=== PATIENT | male | born 1955 | race Caucasian/White ===

== ENCOUNTER 2016-07-03 06:43 | Day surgery (SDC) | payer OTHER ==
[~2016-07-03 06:43] MED LIST: APIX5 PO; CARV3.125 PO; CENTTAB9 PO; DIGO.25 PO; FURO20 PO; KCL10C PO; LISI5 PO; OMEP20TA OR
[2016-07-03] MEDS ORDERED: LORazepam 1 MG TAB SL SCH (07:30)
[2016-07-03] MEDS ORDERED: MIDAZOLAM HCL 2 MG/2 ML VIAL ONE (07:57)
[2016-07-03] MEDS ORDERED: HEPARIN-D5W INJ 250 ML ONE (07:57)
[2016-07-03] MEDS ORDERED: ISOPROTERENOL HCL 1 MG/5 ML AMP ONE (07:57)
[2016-07-03] MEDS ORDERED: fentaNYL CITRATE 250 MCG/5 ML AMP ONE (07:58)
[2016-07-03] MEDS ORDERED: HEPARIN SODIUM - IV 10,000 UNITS/10 ML VIAL ONE (07:58)
[2016-07-03] MEDS ORDERED: METOPROLOL TARTRATE 25 MG TAB PO PRN (08:00)
[2016-07-03] MEDS ORDERED: INSULIN HUMAN REGULAR 1,000 UNITS/10 ML VIAL SQ PRN (08:00)
[2016-07-03] MEDS ORDERED: SODIUM CHLORID 0.9% 500 ML IV SCH (08:00)
[2016-07-03] MEDS ORDERED: LACTATED RINGER'S 1000 ML IV SCH (08:00)
[2016-07-03] MEDS ORDERED: SODIUM CHLORID 0.9% 500 ML INJ 500 ML IV SCH (08:00)
--- NOTE | 2016-07-03 10:03 | EKG ---
Date Performed: 07/03/2016 Time Performed: 07:31:42 PTAGE: 60 years EKG: BASELINE ARTIFACT PRESENT. Atrial fibrillation with slow ventricular response Possible ante rior infarct - age undetermined Inferior/lateral T wave changes are nonspecific Abnormal ECG Within t he constraints of artifact, probably no significant change. PREVIOUS TRACING : 04/03/2016 17.37 DOCTOR: Henry Clemente Interpretating Date/Time 07/03/2016 10:01:51
== END 2016-07-03 08:00 | disposition home or self-care (01) ==
LOC: HDOC 06:43 → HDIC 06:44 → HDOC 08:00
PROVIDERS: ATTEND Internal Medicine Interventional Cardiology
DX: I48.2 Chronic atrial fibrillation (principal); I10 Essential (primary) hypertension; Z53.9 Procedure and treatment not carried out, unspecified reason
CPT/HCPCS: 93005; G0463; 93312; 93320; 93325; 99211; J1644; J2250; J3010

== ENCOUNTER 2016-07-07 14:07 | Day surgery (SDC) | payer OTHER ==
[~2016-07-07] VITALS: Ht 180.3 cm; Wt 90.2 kg
[2016-07-07] MEDS ORDERED: LACTATED RINGER'S 1000 ML IV SCH (15:00)
[2016-07-07] MEDS ORDERED: SODIUM CHLORID 0.9% 500 ML IV SCH (15:00)
[2016-07-07 15:08] VITALS: BP 149/104; PULSE 81; RESP 18; TEMP 98.3; O2SAT 98
[2016-07-07] MEDS ORDERED: METOPROLOL TARTRATE 25 MG TAB PO PRN (15:15)
[2016-07-07] MEDS ORDERED: INSULIN HUMAN REGULAR 1,000 UNITS/10 ML VIAL SQ PRN (15:15)
[2016-07-07] MEDS ORDERED: CARV12.5 PO (15:19)
[2016-07-07] MEDS ORDERED: MULT-135 PO (15:19)
[2016-07-07] MEDS ORDERED: FURO1TAB62 PO (15:19)
[2016-07-07] MEDS ORDERED: LISI-519 PO (15:19)
[2016-07-07] MEDS ORDERED: DIGO0.25 PO (15:19)
[2016-07-07] MEDS ORDERED: APIX5TAB PO (15:19)
[2016-07-07] MEDS ORDERED: K-TA10TA PO (15:19)
[2016-07-07 15:26] LABS: AUTOMATED NEUTROPHIL # 5.3 TH/MM3 (1.8-7.7); BASOPHIL % 0.2 % (0.0-2.0); EOSINOPHIL # 0.1 TH/MM3 (0-0.4); EOSINOPHIL % 1.6 % (0.0-4.0); HEMATOCRIT 44.3 % (39.0-51.0); HEMO FLAGS DIFF FINAL; LYMPH % 16.8 % (9.0-44.0); LYMPHOCYTE # 1.2 TH/MM3 (1.0-4.8); MEAN CELL VOLUME 87.6 FL (80.0-100.0); MEAN CORPUSCULAR HGB CONC 34.2 % (32.0-36.0); MONO % 7.2 % (0.0-8.0); NEUT % 74.2 % (16.0-70.0); PLATELET COUNT 216 TH/MM3 (150-450); RED BLOOD COUNT 5.06 MIL/MM3 (4.50-5.90); RED CELL DISTRIBUTION WIDTH 13.2 % (11.6-17.2); WHITE BLOOD COUNT 7.1 TH/MM3 (4.0-11.0)
[2016-07-07] MEDS ORDERED: PROTAMINE SULFATE 50 MG/5 ML VIAL ONE (15:33)
[2016-07-07] MEDS ORDERED: ISOPROTERENOL HCL 1 MG/5 ML AMP ONE (15:33)
[2016-07-07] MEDS ORDERED: FUROSEMIDE 40 MG/4 ML VIAL ONE (15:33)
[2016-07-07] MEDS ORDERED: HEPARIN SODIUM - IV 10,000 UNITS/10 ML VIAL ONE (15:33)
[2016-07-07] MEDS ORDERED: HEPARIN-D5W INJ 250 ML ONE (15:33)
[2016-07-07] MEDS ORDERED: SODIUM CHLOR 0.9% 250 ML INJ 250 ML ONE (15:33)
[2016-07-07 15:36] LABS: APTT (PATIENT) 27.1 SEC (24.3-30.1); PROTHROMBIN TIME - PATIENT 11.3 SEC (9.8-11.6)
[2016-07-07 15:49] LABS: POTASSIUM 4.2 MEQ/L (3.5-5.1)
[2016-07-07] MEDS ORDERED: HEPARIN-NS/PF INJ 500 ML ONE (15:55)
[2016-07-07] MEDS ORDERED: LEVOFLOXACIN 500 MG PREMIX INJ 100 ML IV ONE (15:56)
[2016-07-07] MEDS ORDERED: SODIUM CHLORID 0.9% 500 ML INJ 500 ML IV ONE (19:00)
[2016-07-07] MEDS ORDERED: ePHEDrine/NS 50 MG/5 ML SYR IV ONE (19:00)
[2016-07-07] MEDS ORDERED: ONDANSETRON HCL 4 MG/2 ML VIAL IV PUSH ONE (19:00)
[2016-07-07] MEDS ORDERED: BACITRACIN OINT 0.9 GM PKT TOP ONE (19:15)
[2016-07-07] MEDS ORDERED: LIDOCAINE HCL 1% 50 ML VIAL INFIL PRN (19:15)
[2016-07-07] MEDS ORDERED: LORazepam 2 MG/ML VIAL IV PRN (19:15)
[2016-07-07] MEDS ORDERED: ATROPINE SULFATE 1 MG/ML VIAL IV PRN (19:15)
[2016-07-07] MEDS ORDERED: SODIUM CHLOR 0.9% 250 ML INJ 250 ML IV PRN (19:15)
[2016-07-07] MEDS ORDERED: oxyCODONE/ACETAMINOPHEN 5 MG/325 MG TAB PO PRN ×2 (19:15)
[2016-07-07] MEDS ORDERED: ONDANSETRON HCL 4 MG/2 ML VIAL IV PRN (19:15)
[2016-07-07] MEDS ORDERED: METOCLOPRAMIDE HCL 10 MG/2 ML VIAL IV PRN (19:15)
[2016-07-07] MEDS ORDERED: MIDAZOLAM HCL 2 MG/2 ML VIAL ONE (19:36)
[2016-07-07] MEDS ORDERED: fentaNYL CITRATE 250 MCG/5 ML AMP ONE (19:36)
[2016-07-07] MEDS ORDERED: DO NOT ADM ANY ANTICOAGULANT DRUGS XX PRN (21:00)
[2016-07-07] MEDS: APIXABAN 5 MG TABLET PO SCH (21:02)
[2016-07-07] MEDS: CARVEDILOL 12.5 MG TAB PO SCH (21:02)
[2016-07-07] MEDS ORDERED: ACETAMINOPHEN 1000 MG/100 ML VIAL IV ONE (22:48)
[2016-07-07] MEDS ORDERED: TETRACAINE 0.5% OPTH SOLN 2 ML BTL LEFT EYE ONE (23:00)
[2016-07-07] MEDS ORDERED: ACETAMINOPHEN 1000 MG/100 ML VIAL IV PRN (23:00)
[2016-07-07] MEDS ORDERED: BALANCED SALT SOLN OPHT IRRIG 15 ML BTL LEFT EYE ONE (23:00)
[2016-07-08] VITALS (8 sets, daily range): BP systolic 140–152; BP diastolic 88–93; PULSE 53–78; RESP 18; TEMP 97.4–98.3; O2SAT 96–98
[2016-07-08 06:10] LABS: APTT (PATIENT) 27.3 SEC (24.3-30.1); INTERNATIONAL NORMALIZED RATIO 1.1 RATIO; PROTHROMBIN TIME - PATIENT 11.8 SEC (9.8-11.6)
[2016-07-08] MEDS: CARVEDILOL 12.5 MG TAB PO SCH (08:12)
[2016-07-08] MEDS: APIXABAN 5 MG TABLET PO SCH (08:12)
--- NOTE | 2016-07-08 08:15 | PD.CARD ---
AFIB ABLATION 2 PROCEDURE DATE: Jul 07, 2016 CARDIOVERSION: Yes Atrial Fibrillation Ablation 2 PROCEDURE Electrophysiology study, CS cannulation, 3-D mapping, right and left heart catheterization, transseptal approach, left atrial pacing, mapping and ablation of atrial fibrillation, pulmonary vein isolation, roof line, posterior wall ablation and mitral valve isolation, left atrial tachycardia ablation, cardioversion as well as intracardiac echo. Very difficult and complex case. HISTORY Mr. Shine is a 60 -year-old male with atrial fibrillation, very symptomatic, heart rate difficult to control was referred for electrophysiology study and atrial fibrillation ablation. The risks, the nature and the benefit of procedure were clearly stated to him . The risks include pneumothorax, cardiac perforation, stroke and even . He understood and agreed to proceed. PROCEDURE As written informed consent was obtained prior to transesophageal echo, the patient was kept on the table where he was intubated and put under general anesthesia by anesthesiologist. Then, he was prepped and draped in the sterile fashion. At that point, using the modified sterile technique, the left femoral vein was cannulated on three occasions and three guide wires were advanced. Over the wires and one 7-Malagasy, one 6-Malagasy and one 10-Malagasy Hemaquet were advanced. Then, the left femoral artery was cannulated on one occasion and one guidewire was advanced. Over the wire 4-Malagasy Hemaquet was advanced. Subsequently the right femoral vein was cannulated on one occasion and one guidewire was advanced. Over the wire an 8-Malagasy Hemaquet was advanced. Then , under fluoroscopic guidance through the 7 and 6-Malagasy Hemaquet, two 5-Malagasy Lisa curved quadripolar electrophysiology catheters were placed and positioned on the coronary sinus and the His. The patient was in atrial fibrillation. Basic interval was measured, HV was within normal limits. Subsequently through the 10-Malagasy Hemaquet, and intracardiac echo catheter was advanced into the right atrium. Multiple views were obtained. There was no pericardial effusion. Pulmonary vein was clearly visualized and there was adequate flow. There was moderate to severely decrease the left ventricular wall contractility. There was severe left atrial enlargement. Smoke seen in left atrial. Foci was clearly visualized. The aortic root as well as the aortic valve was clearly visualized. Then, the 8 Malagasy Hemaquet was exchanged for a transseptal Argilus sheath that was placed all the way to the superior vena cava. Through the dilator, a [place] needle was advanced. Then in the MONGOLIAN 30 with intracardiac echo guiding the sheath was advanced posteriorly on the foci and engaged. Once engaged the needle was advanced. RF was delivered for 2 seconds, I was able to cross the atrial septum without difficulty. At this point the dilator was advanced. The needle was pulled back and subsequently the sheath was advanced. Once we realized the sheath crossed on the intracardiac echo the dilator and the needle was removed. The sheath was subsequently flushed. Fluid movement was seen in the left atrium. That indicated sheath in place. The patient already received [id number] units of heparin. The goal is to keep an ACT around the 350 seconds. Then, an esophageal probe was advanced to measure initiation temperature during ablation. If there is any increase of 0.5 degrees Celsius during ablation we will stop and move to a different part of the left atrium or wait until the temperature comes down and continue with ablation. Through the argilus sheath, a [place] 20 poles mapping catheter was advanced. Using [employer] endocardial solution mapping system a three-dimensional configuration of the left atrium was obtained. I did identify the left superior and inferior vein, the left atrial appendage as well as the mitral valve. Then, the right superior and the right inferior vein. After the 3D mapping of the left atrium was complete, I did remove the circumferential catheter and replaced by a [place] Tacticat, 3.5 mm irrigated tip, 65 cm, mapping and radiofrequency ablation catheter. First I did proceed with isolation of the left superior and inferior vein. Posterior wall was ablated. Lateral wall was ablated. A roof line was created. A mitral line was also created. mitral valve was isoalted. Anterior wa;ll was ablated. Floor line was created. Patient was in atrial tachycardia at that point. Anterior fractionated signals were also eliminated. Then, I did proceeded with isolation of the right superior and inferior vein as well as the [place]. At that point, the ablation catheter was removed. I did advance the circumferential catheter to the left superior vein. The left superior vein at the beginning of the procedure was very active and there was no significant signal seen there. All veins were isolated. I decided to proceed with cardioversion. A 200 J sync biphasic was delivered that converted patient into sinus rhythm. I did pace at the left superior vein conduction to the left atrium. Pacing from the coronary sinus showed no conduction. Subsequently the left inferior vein was evaluated also, there was no signal at the left inferior vein. The pacing also showed block. Then, the catheter was placed at the right superior vein, post ablation there was no conduction neither. There was no conduction in the right inferior. Basic intervals were measured. Isuprel was infused at 20 mcg. No tachycardia was induced. At this point, the procedure was completed. No tachyarrhythmia was induced. Intracardiac echo showed no pericardial effusion. There was still good flow in the pulmonary veins. The transseptal sheath was pulled back to the right atrium. The catheter was removal. The Argelius sheath was exchanged for an 8 Malagasy Hemaquet. The patient was stable. That was a very complex case. No incident to report. he tolerated the procedure. Blood loss minimal. 1. Electrocardiogram: At baseline the patient was atrial fibrillation. Postprocedure patient was into sinus rhythm. 2. Basic interval: The base interval was around 510 milliseconds. Post ablation , AH at 98 and HV was around 52 milliseconds. 3. Atrial pacing protocol: Pacing from the pulmonary vein showed no conduction to the left atrium. Pacing from the coronary sinus showed no conduction to the pulmonary vein, indicated bilateral line of block. Ablation atrial fibrillation was mapped, the veins were very active post ablation, there was no conduction and the veins were basically quiet. Ablation was successful. CONCLUSIONS Successful electrophysiology study, mapping and radiofrequency ablation of atrial fibrillation, pulmonary vein isolation, mitral line, mitral valve isolation, left atrial tachycardia ablation, roof line creation, floor line creation and cardioversion. COMMENT/RECOMMENDATIONS The patient to be transferred to the telemetry unit. He will be observed, when stable can be discharged home. Jono Alberts MD Jul 08, 2016 08:15
--- NOTE | 2016-07-08 08:18 | HHI.PR ---
Subjective Remarks Feeling better Objective Vital Signs Date Time Temp Pulse Resp B/P Pulse Ox O2 Delivery O2 Flow Rate FiO2 07/08/16 06:00 56 07/08/16 05:00 58 07/08/16 04:00 98.0 55 18 140/88 97 07/08/16 04:00 53 07/08/16 03:00 58 07/08/16 02:00 54 07/08/16 01:00 60 07/08/16 00:00 98.3 56 18 152/93 98 07/08/16 00:00 78 07/07/16 22:00 98.6 80 14 126/85 97 Nasal Cannula 2 07/07/16 21:00 81 14 144/93 97 Nasal Cannula 2 07/07/16 20:30 97.5 81 12 139/95 98 Nasal Cannula 2 07/07/16 20:15 74 12 150/86 98 Nasal Cannula 2 07/07/16 20:00 80 12 143/95 96 Nasal Cannula 2 07/07/16 19:45 80 12 145/102 99 Nasal Cannula 2 07/07/16 19:30 89 14 126/90 100 Nasal Cannula 3 07/07/16 19:26 97.8 86 14 139/92 96 Nasal Cannula 3 07/07/16 15:08 98.3 81 18 149/104 98 I/O 07/07/16 07/07/16 07/07/16 07/08/16 07/08/16 07/08/16 07:00 15:00 23:00 07:00 15:00 23:00 Intake Total 1022 ml Output Total 2165 ml 300 ml Balance -1143 ml -300 ml Intake Oral 322 ml IV Total 200 ml Other 500 ml Output Urine Total 1650 ml 300 ml Estimated Blood Loss 15 ml Other 500 ml Result Diagram: 07/07/16 1459 07/07/16 1459 Imaging Alert, fully oriented Lungs: ventilated Heart: S1, S2 regular abdomen: soft, no mass Ext: no edema no hematoma Current Medications Medications (Trade) Dose Ordered Sig/Osorio Route Start Time Stop Time Status Last Admin Lactated Ringer's 1,000 ml @ 30 mls/hr Q24H IV 07/07/16 15:00 07/07/16 20:30 (NS 500 ml Inj) 500 ml @ 30 mls/hr [id number] IV 07/07/16 15:00 07/08/16 14:59 (Percocet 5-325 Mg) 1 tab Q4H PRN PO 07/07/16 19:15 (Percocet 5-325 Mg) 2 tab Q4H PRN PO 07/07/16 19:15 (Ativan Inj) 0.5 mg UNSCH PRN IV 07/07/16 19:15 07/08/16 19:14 Atropine Sulfate 0.5 mg 0.5 mg UNSCH PRN IV 07/07/16 19:15 (NS 250 ml Inj) 250 ml @ 500 mls/hr ONCE PRN IV 07/07/16 19:15 07/08/16 19:14 (Reglan Inj) 10 mg Q4H PRN IV 07/07/16 19:15 (Zofran Inj) 4 mg Q4H PRN IV 07/07/16 19:15 (Xylocaine 1% Inj (50 ml)) 10 ml UNSCH PRN INFIL 07/07/16 19:15 07/08/16 19:14 (Eliquis) 5 mg BID PO 07/07/16 21:00 07/07/16 21:02 (Coreg) 12.5 mg BID PO 07/07/16 21:00 07/07/16 21:02 (Lasix) 20 mg DAILY PO 07/08/16 09:00 (Prinivil) 5 mg DAILY PO 07/08/16 09:00 (Theragran) 1 tab DAILY PO 07/08/16 09:00 (KCl) 10 meq DAILY PO 07/08/16 09:00 Miscellaneous Information ALL NURSING DEPARTME... UNSCH PRN XX 07/07/16 21:00 07/08/16 20:59 Assessment and Plan Problem List: (1) Cardiomyopathy Status: Acute Plan: Improving (2) Atrial fibrillation Status: Acute Plan: SP ablation. In sinus rhythm Doing better Meds modified Will be Jono Canas MD Jul 08, 2016 08:18
[2016-07-08] MEDS ORDERED: POTASSIUM CHLORIDE 10 MEQ CONTROLLED RELEASE TAB PO SCH (09:00)
[2016-07-08] MEDS ORDERED: MULTIVITAMIN TAB PO SCH (09:00)
[2016-07-08] MEDS ORDERED: LISINOPRIL 5 MG TAB PO SCH (09:00)
[2016-07-08] MEDS ORDERED: FUROSEMIDE 20 MG TAB PO SCH (09:00)
--- NOTE | 2016-07-08 17:19 | EKG ---
Date Performed: 07/07/2016 Time Performed: 15:15:30 PTAGE: 60 years EKG: Atrial fibrillation Poor R wave progression. Inferior/lateral ST-T changes are nonspecific Abnormal ECG PREVIOUS TRACING : 07/03/2016 07.31 DOCTOR: Josemanuel Pichardo Interpretating Date/Time 07/08/2016 17:18:19
--- NOTE | 2016-07-08 17:21 | EKG ---
Date Performed: 07/08/2016 Time Performed: 05:03:14 PTAGE: 60 years EKG: Sinus bradycardia Anterolateral T wave changes are nonspecific Since previous tracing, no s ignificant change noted Borderline ECG PREVIOUS TRACING : 07/07/2016 19.47 DOCTOR: Josemanuel Pichardo Interpretating Date/Time 07/08/2016 17:20:22
--- NOTE | 2016-07-08 17:21 | EKG ---
Date Performed: 07/07/2016 Time Performed: 19:47:23 PTAGE: 60 years EKG: Sinus rhythm ST DEVIATION AND MODERATE T-WAVE ABNORMALITY, CONSIDER LATERAL ISCHEMIA When compared to previous tr acing, patient is now in normal sinus Rhythm. Poor R wave progression is also noted. ABNORMAL ECG PREVIOUS TRACING : 07/07/2016 15.15 DOCTOR: Josemanuel Pichardo Interpretating Date/Time 07/08/2016 17:19:55
--- NOTE | 2016-08-16 14:20 | ETE ---
Study Study Date:07/07/2016 STUDY CONCLUSIONS SUMMARY - Left ventricle: The cavity size was normal. Wall thickness was normal. Systolic function was moderately to severely reduced. The estimated ejection fraction was in the range of 30% to 35%. Wall motion was normal; there were no regional wall motion abnormalities. - Aortic valve: No evidence of vegetation. - Mitral valve: No evidence of vegetation. - Left atrium: The atrium was dilated. No evidence of thrombus in the atrial cavity or appendage. No evidence of thrombus in the atrial cavity or appendage. - Right atrium: No evidence of thrombus in the atrial cavity or appendage. - Atrial septum: No defect or patent foramen ovale was identified. Echo contrast study showed no [id number] atrial level shunt, at baseline or with provocation. - Tricuspid valve: No evidence of vegetation. - Pulmonic valve: No evidence of vegetation. If LV function is below 40, please consider prescribing an ACEI or ARB or document rationale for non-use. PROCEDURE DATA Consent: The risks, benefits, and alternatives to the procedure were explained to the patient and informed consent was obtained. Procedure: Initial setup. The patient was brought to the laboratory in the fasting state. Intravenous access was obtained. Surface ECG leads and pulse oximetric signals were monitored. Sedation. Conscious sedation was administered by anesthesiology. Transesophageal echocardiography. Topical anesthesia was obtained using viscous lidocaine. A transesophageal probe was inserted by the attending marketing strategist. Image quality was good. Study completion: All IVs inserted during the procedure were removed. The patient tolerated the procedure well. There were no complications. Transesophageal echocardiography. 2D, complete spectral Doppler, and color Doppler. CARDIAC ANATOMY LEFT VENTRICLE: The cavity size was normal. Wall thickness was normal. Systolic function was moderately to severely reduced. The estimated ejection fraction was in the range of 30% to 35%. Wall motion was normal; there were no regional wall motion abnormalities. AORTIC VALVE: Trileaflet; mildly thickened, mildly calcified leaflets. Cusp separation was normal. No evidence of vegetation. Doppler: No significant regurgitation. Aorta: - There was no atheroma. There was no evidence for dissection. Aortic root: The aortic root was not dilated. Ascending aorta: The ascending aorta was normal in size. Aortic arch: The aortic arch was normal in size. Descending aorta: The descending aorta was normal in size. MITRAL VALVE: Structurally normal valve. Leaflet separation was normal. No evidence of vegetation. Doppler: Trace regurgitation. LEFT ATRIUM: The atrium was dilated. No evidence of thrombus in the atrial cavity or appendage. No evidence of thrombus in the atrial cavity or appendage. The appendage was morphologically a left appendage, multilobulated, and of normal size. Emptying velocity was normal. ATRIAL SEPTUM: No defect or patent foramen ovale was identified. Echo contrast study showed no [id number] atrial level shunt, at baseline or with provocation. RIGHT VENTRICLE: The cavity size was normal. Wall thickness was normal. Systolic function was normal. PULMONIC VALVE: Structurally normal valve. No evidence of vegetation. TRICUSPID VALVE: Structurally normal valve. Leaflet separation was normal. No evidence of vegetation. Doppler: Trace regurgitation. PULMONARY ARTERY: The main pulmonary artery was normal-sized. RIGHT ATRIUM: The atrium was normal in size. No evidence of thrombus in the atrial cavity or appendage. The appendage was morphologically a right appendage. PERICARDIUM: There was no pericardial effusion. Prepared and signed by Jono Alberts [id number]
== END 2016-07-08 12:21 | disposition home or self-care (01) ==
LOC: HDOC 14:07 → HDIC 14:22 → HCIN 23:45 → HDOC 07-08 12:21
PROVIDERS: ATTEND Internal Medicine Interventional Cardiology
DX: I48.2 Chronic atrial fibrillation (principal); I42.9 Cardiomyopathy, unspecified
CPT/HCPCS: 80048; 85002; 85025; 85610; 85730; 86850; 86900; 86901; 92960; 93005; 93312; 93320; 93325; 93613; 93623; 93656; 93662; C1730; C1731; C1732; C1759; C1766; C2630; J0131; J1644; J1940; J1956; J2250; J2405; J2720; J3010; J7040; J7050; J7120